=== PATIENT | female | born 1985 ===

== ENCOUNTER → 2017-11-26 12:17 | Outpatient (CLI) | payer OTHER, SELFPAY ==
[2017-11-26 14:43] LABS: TSH w/ Reflex to FT4 1.13 uIU/mL (0.47-4.68)
== END ==
PROVIDERS: Family Provider Family Medicine; PCP Family Medicine; Visit Provider Family Medicine
DX: Z30.430 Encounter for insertion of intrauterine contraceptive device (principal); R53.83 Other fatigue
CPT/HCPCS: 36415; 84443

== ENCOUNTER → 2018-01-21 08:00 | Outpatient (CLI) | payer OTHER, SELFPAY | PROVIDERS: Family Provider Family Medicine; PCP Family Medicine | DX: Z23 Encounter for immunization (principal) | CPT/HCPCS: 90471; 90686 ==

== ENCOUNTER → 2018-02-20 11:24 | Outpatient (CLI) | payer OTHER, SELFPAY ==
--- NOTE | 2018-02-20 11:26 | DI.RAD.S_ITS ---
PROCEDURE: XR HIP W PEL IF DONE LT 2V INDICATIONS: left hip pain TECHNIQUE: AP pelvis with lateral view(s) of the left hip(s). COMPARISON: None. FINDINGS: Bones: No fractures or dislocations. Pelvic ring appears intact. No suspicious bony lesions. Soft tissues: The visualized bowel gas pattern is normal. No suspicious soft tissue calcifications. IUD is noted. Prominent stool is present. IMPRESSION: 1. Prominent stool consistent with constipation. 2. No visualized acute fracture or dislocation. However, if clinical concern and/or pain persist, short interval imaging followup in 7-10 days is recommended, as occult injury cannot be definitively excluded. Dictated by: Lucy Nixon M.D. on 02/20/2018 at 13:43 Approved by: Lucy Nixon M.D. on 02/20/2018 at 13:44
== END ==
PROVIDERS: Family Provider Family Medicine; PCP Family Medicine; Visit Provider Family Medicine
DX: M25.552 Pain in left hip (principal)
CPT/HCPCS: 73502

== ENCOUNTER 2018-03-31 08:15 | Outpatient (RCR) | payer OTHER, SELFPAY ==
--- NOTE | 2018-02-28 11:20 | PT.OPPOC ---
Current Diagnoses Pain in left hip (03/04/18) Provider Visit Care Team Role Provider Type Deep Gatica MD Attending Provider Physician Family Provider Primary Care Provider Specialty: Family Practice Address: [address] [place] [address], [id number] Email: [email or web address] Plan Of Care PT-OP-T Assessment and Plan Start: 02/28/18 19:33 Freq: Status: Active Protocol: Document 02/28/18 11:20 DLM (Rec: 03/04/18 18:25 DLM [id number]) Physical Therapy Assessment Rehab Potential Rehabilitation Potential Good Evaluation Complexity Number of Personal Factors/Comorbidities 1-2 Number of Body Systems Impaired 4 or More Clinical Presentation at Evaluation Evolving Impairments Impairments Activity Tolerance Functional Activities Pain Posture ROM Soft Tissue Mobility Strength Goals Four Impairment Pain that limits her gym work- outs 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 (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) Return to running without increase hip pain LTG Duration 6 weeks Three Impairment Decreased LE strength Short Term Goal (STG) Increase LE strength to 4+/5 STG Duration 4 weeks Penitentiary Goal (LTG) Increase LE strength to 5/5 LTG Duration 6 weeks Two Impairment Difficulty sleeping due to pain, unable to lie on left side Short Term Goal (STG) resolve left sidelying pain STG Duration 4 weeks Penitentiary Goal (LTG) Pain will no longer interfere with her sleep One Impairment pain 5-6/10 left hip and low back Short Term Goal (STG) Decrease her pain to 3/10 STG Duration 3 weeks Penitentiary Goal (LTG) Decrease her pain to 1/10 LTG Duration 6 weeks Assessment Summary Assessment She presents with low back and left hip pain with altered mechanics, muscle weakness and soft tissue tightness. Her baseline activity level is high and she has increased pain when she tries to run. She is a good candidate for out-pt physical therapy to address the above impairments. Physical Therapy Plan Frequency and Duration Frequency of Treatment 2x/Week Duration of Treatment 6 weeks Plan of Care Start Date 02/28/18 Plan of Care End Date 05/11/18 Therapeutic Interventions Therapeutic Interventions Home Exercise Program Joint Mobilizations Manual Therapy Patient/Caregiver Education Self-Care/Home Management Soft Tissue Mobilization Taping Therapeutic Activities Therapeutic Exercises Modalities Cold Pack/Ice Massage Electric Stimulation Hot Packs Ultrasound Next Visit Focus/Plan Next Note Type Treatment Note Next Visit Plan advance exercises as tolerated Plan of Care Dates Plan of Care Start Date 02/28/18 Plan of Care End Date 05/11/18 Please Sign and Return: I have reviewed this Plan of Care and certify that the skilled therapy services above are required to meet the patient?s needs. Physician Signature Date Printed Name and Credentials Clinical Instructor Signature Printed Name and Credentials
--- NOTE | 2018-02-28 11:20 | PT.OIE ---
Current Diagnoses Pain in left hip (03/04/18) Past Surgical History (Last Reviewed 02/19/18 @ 11:02 by Yola Mcknight LPN) Status post delivery (Resolved 05/20/14) Status post delivery (Resolved 01/11/16) Provider Visit Care Team Role Provider Type Deep Gatica MD Attending Provider Physician Family Provider Primary Care Provider Specialty: Family Practice Address: [address] [place] [address], [facility] Email: [email or web address] Physical Therapy Initial Evaluation PT-OP-A Visit Information Start: 02/28/18 19:33 Freq: Status: Active Protocol: Document 02/28/18 11:20 DLM (Rec: 03/04/18 18:25 DLM [id number]) Out-Patient Physical Therapy Visit Information Visit Information Visit Type Initial Evaluation Visit Start Time 11:20 Visit Stop Time 12:10 Total Visit Minutes 50 Visit Number 06/24 Number of INTEGRATION ENGINEER Visits 0 Evaluation Information Evaluation Date 02/28/18 PT-OP-B Current Condition Start: 02/28/18 19:33 Freq: Status: Active Protocol: Document 02/28/18 11:20 DLM (Rec: 03/04/18 18:25 DLM [id number]) Current Condition History of Current Condition Onset Date since last Current Complaints left hip pain and low back pain History of Current Condition She reports developing left hip pain during her . It continues to bother her. She has increased pain after running and can have difficulty walking for a few days. The pain affects her sleep. She has increased pain if she lies on left side. Prior Treatments and Tests Lidocaine patch did not help, topical NSAID cream helps a little. Ibuprofen helps. 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 Baseline Function- Recreation/Hobbies works out a gym, runs Baseline Function- Other visits [place] every month She sleeps on stomach often with left LE up Current Functional Impairments (Reported) Functional Limitations- ADL's Independent Functional Limitations- Mobility/Gait Independent gait without device Functional Limitations- Work/School no limits in ability to work Functional Limitations- Recreation/ unable to run for exercise, Hobbies can do elliptical but it gets boring, she has less pain run/ walking on incline and worse on flat surface, increased pain on long car trip Personal Factors Other Personal Factors That May Effect depression Therapy/Recovery PT-OP-C Subjective Start: 02/28/18 19:33 Freq: Status: Active Protocol: Document 02/28/18 11:20 DLM (Rec: 03/04/18 18:25 DL [id number]) Patient Questionnaires Lower Extremity Functional Scale LEFS Score 30 LEFS Impairment 60 to 79% Impaired (Score 17- 31) OP-PT Pain Assessment Pain Assessment Grid Paper Pain Assessment Grid Completed Yes Location Bilateral Lower Posterior Back Intensity 5 Scale Used Numeric (1 - 10) Description Aching Frequency Intermittent Pain Aggravating Factors Position Activity Pain Alleviating Factors Heat Medication Left Posterior Lateral Hip Intensity 6 Scale Used Numeric (1 - 10) Description Aching Frequency Intermittent Pain Aggravating Factors Position Exercise Other Pain Aggravating Factors riding in car for long periods Pain Alleviating Factors Medication Inactivity Other Pain Alleviating Factors ice does not help Home Pain Medication Use Pain Medications Used Yes: Ibuprofen Home Pain Medication Frequency as needed PT-OP-H Neuro Start: 02/28/18 19:33 Freq: Status: Active Protocol: Document 02/28/18 11:20 DLM (Rec: 03/04/18 18:25 DL [id number]) Sensation Evaluation Gross Sensation Gross Sensation WNL PT-OP-J Posture/Palpation/Skin Start: 02/28/18 19:33 Freq: Status: Active Protocol: Document 02/28/18 11:20 DLM (Rec: 03/04/18 18:25 [facility] [id number]) Posture Evaluation Position Standing Evaluation View Posterior Head/C-Spine Posture Forward Head T-Spine Posture Rotation Left L-Spine Posture Shifted Right Pelvis Posture (R) Rotated Anterior Weight Distribution Weight Shifted Left Knee Posture (L) Genu Varus (R) Genu Varus Palpation Assessment Location Two Palpation Location left gluteal area Palpation Findings Soft Tissue Tightness Palpation Details tender left piriformis One Palpation Location lumbar paraspinals Palpation Findings Soft Tissue Tightness PT-OP-K Range of Motion Start: 02/28/18 19:33 Freq: Status: Active Protocol: Document 02/28/18 11:20 DLM (Rec: 03/04/18 18:25 DL [id number]) Lumbar Spine Range of Motion Lumbar Spine Active Percentage Testing Position standing Flexion 100 Extension 100 Rotation Left 100 Rotation Right 90 Lateral Flexion Left 80 Lateral Flexion Right 100 ROM Limitations Soft Tissue Tightness Comments compensationd during flexion with her body shifts right Hip Goniometric Range of Motion Hip Measured in Degrees Left Active Testing Position all positions used above Straight Leg Raise 78 Internal Rotation 38 Right Active Hip ROM WFL Yes Testing Position all positions used above Straight Leg Raise 72 Internal Rotation 40 Hip ROM Limitations Hip ROM Limitations Soft Tissue Tightness Muscle Weakness Comments other motions WFL PT-OP-L Special Tests Start: 02/28/18 19:33 Freq: Status: Active Protocol: Document 02/28/18 11:20 DLM (Rec: 03/04/18 18:25 DL [id number]) Special Tests Lumbar Spine Special Tests Prone Knee Flexion Test Results negative Prone Press Up Test Results negative Standing Flexion Test Results negative Slump Test Results negative Straight Leg Raise Test Results negative during test, c/o numbness right LE after testing Hip Special Tests Scour Test Test Results negative PT-OP-M Strength Start: 02/28/18 19:33 Freq: Status: Active Protocol: Document 02/28/18 11:20 DLM (Rec: 03/04/18 18:25 [facility] [id number]) Hip Strength Hip Manual Muscle Testing Left Flexion (L2) 4- Good- Extension (S1) 4+ Good+ Adduction 5 Normal External Rotation 4+ Good+ Internal Rotation 4+ Good+ Reason Not Measured Pain Right Flexion (L2) 5 Normal Extension (S1) 5 Normal Abduction 5 Normal Adduction 5 Normal External Rotation 5 Normal Internal Rotation 5 Normal Knee Strength Knee Manual Muscle Testing Left Flexion (S2) 4+ Good+ Extension (L3) 5 Normal Right Flexion (S2) 4 Good Extension (L3) 5 Normal Ankle/Foot Strength Ankle and Foot Manual Muscle Testing Right Dorsiflexion (L4) 5 Normal Plantarflexion (S1) 5 Normal Eversion (S1) 5 Normal Left Dorsiflexion (L4) 5 Normal Plantarflexion (S1) 5 Normal Eversion (S1) 5 Normal PT-OP-Q Treatments Start: 02/28/18 19:33 Freq: Status: Active Protocol: Document 02/28/18 11:20 DLM (Rec: 02/28/18 19:38 DLM [id number]) Therapeutic Exercises Supine Exercises 2 Supine Exercise Name crunches with TVA Reps/Minutes 10 Comments to do instead of sit-ups during home exerices 1 Supine Exercise Name lower trunk rotation without back leaving table Side bilateral Reps/Minutes 5 Comments hooklying Self-Care/Home Management Treatment Education Patient Education Home Exercise Program Pain Management Posture Other Education reviewed her current exercises and began modification to manage her pain, educated her in sleeping positions to manage her pain PT-OP-T Assessment and Plan Start: 02/28/18 19:33 Freq: Status: Active Protocol: Document 02/28/18 11:20 DL (Rec: 03/04/18 18:25 DL [id number]) Physical Therapy Assessment Rehab Potential Rehabilitation Potential Good Evaluation Complexity Number of Personal Factors/Comorbidities 1-2 Number of Body Systems Impaired 4 or More Clinical Presentation at Evaluation Evolving Impairments Impairments Activity Tolerance Functional Activities Pain Posture ROM Soft Tissue Mobility Strength Goals Four Impairment Pain that limits her gym work- outs Alf Goal (LTG) Return to running without increase hip pain LTG Duration 6 weeks Three Impairment Decreased LE strength Short Term Goal (STG) Increase LE strength to 4+/5 STG Duration 4 weeks 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 Her baseline activity level is high and she has increased pain when she tries to run. She is a good candidate for out-pt physical therapy to address the above impairments. Physical Therapy Plan Frequency and Duration Frequency of Treatment 2x/Week Duration of Treatment 6 weeks Plan of Care Start Date 02/28/18 Plan of Care End Date 05/11/18 Therapeutic Interventions Therapeutic Interventions Home Exercise Program Joint Mobilizations Manual Therapy Patient/Caregiver Education Self-Care/Home Management Soft Tissue Mobilization Taping Therapeutic Activities Therapeutic Exercises Modalities Cold Pack/Ice Massage Electric Stimulation Hot Packs Ultrasound Next Visit Focus/Plan Next Note Type Treatment Note Next Visit Plan advance exercises as tolerated
--- NOTE | 2018-03-04 16:50 | PT.OTN ---
Current Diagnoses Pain in left hip (03/04/18) Physical Therapy Treatment Note PT-OP-A Visit Information Start: 02/28/18 19:33 Freq: Status: Active Protocol: Document 03/04/18 16:50 DLM (Rec: 03/04/18 18:41 DLM [id number]) Out-Patient Physical Therapy Visit Information Visit Information Visit Type Treatment Note Visit Start Time 16:50 Visit Stop Time 17:35 Total Visit Minutes 45 Visit Number 2/12 Number of SAFETY ASSOCIATE Visits 0 Evaluation Information Evaluation Date 02/28/18 PT-OP-B Current Condition Start: 02/28/18 19:33 Freq: Status: Active Protocol: Document 02/28/18 11:20 DLM (Rec: 03/04/18 18:25 DLM [id number]) Current Condition History of Current Condition Onset Date since last Current Complaints left hip pain and low back pain History of Current Condition She reports developing left hip pain during her . It continues to bother her. She has increased pain after running and can have difficulty walking for a few days. The pain affects her sleep. She has increased pain if she lies on left side. Prior Treatments and Tests Lidocaine patch did not help, topical NSAID cream helps a little. Ibuprofen helps. 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/Hobbies works out a gym, runs Baseline Function- Other visits [place] every month She sleeps on stomach often with left LE up Current Functional Impairments (Reported) Functional Limitations- ADL's Independent Functional Limitations- Mobility/Gait Independent gait without device Functional Limitations- Work/School no limits in ability to work Functional Limitations- Recreation/ unable to run for exercise, Hobbies can do elliptical but it gets boring, she has less pain run/ walking on incline and worse on flat surface, increased pain on long car trip Personal Factors Other Personal Factors That May Effect depression Therapy/Recovery PT-OP-C Subjective Start: 02/28/18 19:33 Freq: Status: Active Protocol: Document 03/04/18 16:50 DLM (Rec: 03/04/18 18:41 DLM [id number]) OP-PT Subjective Patient Comments Patient Comments started the new exercises without problems Patient Reported Progress Same PT-OP-H Neuro Start: 02/28/18 19:33 Freq: Status: Active Protocol: Document 02/28/18 11:20 DLM (Rec: 03/04/18 18:25 DLM [id number]) Sensation Evaluation Gross Sensation Gross Sensation WNL PT-OP-J Posture/Palpation/Skin Start: 02/28/18 19:33 Freq: Status: Active Protocol: Document 02/28/18 11:20 DLM (Rec: 03/04/18 18:25 DL [id number]) Posture Evaluation Position Standing Evaluation View Posterior Head/C-Spine Posture Forward Head T-Spine Posture Rotation Left L-Spine Posture Shifted Right Pelvis Posture (R) Rotated Anterior Weight Distribution Weight Shifted Left Knee Posture (L) Genu Varus (R) Genu Varus Palpation Assessment Location Two Palpation Location left gluteal area Palpation Findings Soft Tissue Tightness Palpation Details tender left piriformis One Palpation Location lumbar paraspinals Palpation Findings Soft Tissue Tightness PT-OP-K Range of Motion Start: 02/28/18 19:33 Freq: Status: Active Protocol: Document 02/28/18 11:20 DLM (Rec: 03/04/18 18:25 DL [id number]) Lumbar Spine Range of Motion Lumbar Spine Active Percentage Testing Position standing Flexion 100 Extension 100 Rotation Left 100 Rotation Right 90 Lateral Flexion Left 80 Lateral Flexion Right 100 ROM Limitations Soft Tissue Tightness Comments compensationd during flexion with her body shifts right Hip Goniometric Range of Motion Hip Measured in Degrees Left Active Testing Position all positions used above Straight Leg Raise 78 Internal Rotation 38 Right Active Hip ROM WFL Yes Testing Position all positions used above Straight Leg Raise 72 Internal Rotation 40 Hip ROM Limitations Hip ROM Limitations Soft Tissue Tightness Muscle Weakness Comments other motions WFL PT-OP-L Special Tests Start: 02/28/18 19:33 Freq: Status: Active Protocol: Document 02/28/18 11:20 DLM (Rec: 03/04/18 18:25 DLM [id number]) Special Tests Lumbar Spine Special Tests Prone Knee Flexion Test Results negative Prone Press Up Test Results negative Standing Flexion Test Results negative Slump Test Results negative Straight Leg Raise Test Results negative during test, c/o numbness right LE after testing Hip Special Tests Scour Test Test Results negative PT-OP-M Strength Start: 02/28/18 19:33 Freq: Status: Active Protocol: Document 02/28/18 11:20 DLM (Rec: 03/04/18 18:25 DL [id number]) Hip Strength Hip Manual Muscle Testing Left Flexion (L2) 4- Good- Extension (S1) 4+ Good+ Adduction 5 Normal External Rotation 4+ Good+ Internal Rotation 4+ Good+ Reason Not Measured Pain Right Flexion (L2) 5 Normal Extension (S1) 5 Normal Abduction 5 Normal Adduction 5 Normal External Rotation 5 Normal Internal Rotation 5 Normal Knee Strength Knee Manual Muscle Testing Left Flexion (S2) 4+ Good+ Extension (L3) 5 Normal Right Flexion (S2) 4 Good Extension (L3) 5 Normal Ankle/Foot Strength Ankle and Foot Manual Muscle Testing Right Dorsiflexion (L4) 5 Normal Plantarflexion (S1) 5 Normal Eversion (S1) 5 Normal Left Dorsiflexion (L4) 5 Normal Plantarflexion (S1) 5 Normal Eversion (S1) 5 Normal PT-OP-Q Treatments Start: 02/28/18 19:33 Freq: Status: Active Protocol: Document 03/04/18 16:50 DLM (Rec: 03/04/18 18:41 DL [id number]) Therapeutic Exercises Supine Exercises 4 Supine Exercise Name core stabalization with alternating knee lifts Reps/Minutes 10 reps Comments up/up, down/down with hold at 90 degrees with bilateral LE's up 3 Supine Exercise Name single knee to chest stretch Side bilateral Reps/Minutes 3 reps each side Comments cueing to avoid compensations on left 2 Supine Exercise Name crunches with TVA Resistance limited by cervical fatigue Reps/Minutes 10 Comments to do instead of sit-ups during home exerices 1 Supine Exercise Name lower trunk rotation without back leaving table Side bilateral Reps/Minutes 5 Comments hooklying Prone Exercises 1 Prone Exercise Name hip extension with knee straight Side bilateral Reps/Minutes 10 reps each Comments she reports left more difficult than right Sidelying Exercises 3 Sidelying Exercise Name reverse clamshells (IR) Side left Reps/Minutes 10 reps 2 Sidelying Exercise Name Clamshells Side left Reps/Minutes 10 reps 1 Sidelying Exercise Name hip abduction with knee extended Side left Reps/Minutes x 10 reps Comments reps limited by fatigue Manual Therapy Treatment Soft Tissue Mobilization 2 Body Location left gluteal area Mobilization Type Rolling Strumming Sustained Pressure Intensity/Depth Moderate Body Position Prone 1 Body Location lumbar paraspinals Mobilization Type Strumming Sustained Pressure Intensity/Depth Moderate Body Position Prone Manual Techniques 1 Type manually assisted hip rotation stretches Body Location left Body Position Prone Reps/Duration 4 Comments goal to increase hip IR ROM PT-OP-T Assessment and Plan Start: 02/28/18 19:33 Freq: Status: Active Protocol: Document 03/04/18 16:50 DLM (Rec: 03/04/18 18:41 DLM [id number]) Physical Therapy Assessment Progress Towards Goals Progress Towards Goals Progressing Toward Goals Assessment Summary Assessment She appears to tolerate treatment well. Muscle fatigue noted with exercises. Improved soft tissue tightness with treatment. She plans to go on a low car ride to [place]. Physical Therapy Plan Frequency and Duration Frequency of Treatment 2x/Week Duration of Treatment 6 weeks Plan of Care Start Date 02/28/18 Plan of Care End Date 05/11/18 Next Visit Focus/Plan Next Note Type Treatment Note Next Visit Plan trial Estim as needed for pain
--- NOTE | 2018-03-17 13:56 | PT.OTN ---
Current Diagnoses Pain in left hip (03/17/18) Physical Therapy Treatment Note PT-OP-A Visit Information Start: 02/28/18 19:33 Freq: Status: Active Protocol: Document 03/17/18 12:53 LRN (Rec: 03/17/18 13:53 LRN [id number]) Out-Patient Physical Therapy Visit Information Visit Information Visit Type Treatment Note Visit Start Time 12:53 Visit Stop Time 13:30 Total Visit Minutes 37 Visit Number 3/12 Number of CUSTOMER EXPERIENCE PROFESSIONAL Visits 0 Evaluation Information Evaluation Date 02/28/18 PT-OP-B Current Condition Start: 02/28/18 19:33 Freq: Status: Active Protocol: Document 02/28/18 11:20 DLM (Rec: 03/04/18 18:25 DLM [id number]) Current Condition History of Current Condition Onset Date since last Current Complaints left hip pain and low back pain History of Current Condition She reports developing left hip pain during her . It continues to bother her. She has increased pain after running and can have difficulty walking for a few days. The pain affects her sleep. She has increased pain if she lies on left side. Prior Treatments and Tests Lidocaine patch did not help, topical NSAID cream helps a little. Ibuprofen helps. 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 Function- Recreation/Hobbies works out a gym, runs Baseline Function- Other visits [place] every month She sleeps on stomach often with left LE up Current Functional Impairments (Reported) Functional Limitations- ADL's Independent Functional Limitations- Mobility/Gait Independent gait without device Functional Limitations- Work/School no limits in ability to work Functional Limitations- Recreation/ unable to run for exercise, Hobbies can do elliptical but it gets boring, she has less pain run/ walking on incline and worse on flat surface, increased pain on long car trip Personal Factors Other Personal Factors That May Effect depression Therapy/Recovery PT-OP-C Subjective Start: 02/28/18 19:33 Freq: Status: Active Protocol: Document 03/17/18 12:53 LRN (Rec: 03/17/18 13:53 LRN [id number]) OP-PT Subjective Patient Comments Patient Comments Today already worked out. Ran 1 mile (~12 minutes). No LBP , L hip pain ~4/10. OP-PT Pain Assessment Pain Assessment Grid Paper Pain Assessment Grid Completed No Location Bilateral Lower Posterior Back Intensity 0 Scale Used Numeric (1 - 10) Left Posterior Lateral Hip Intensity 4 Scale Used Numeric (1 - 10) Home Pain Medication Use Pain Medications Used Yes: Ibuprofen Home Pain Medication Frequency At night to sleep. PT-OP-H Neuro Start: 02/28/18 19:33 Freq: Status: Active Protocol: Document 02/28/18 11:20 DLM (Rec: 03/04/18 18:25 DLM [id number]) Sensation Evaluation Gross Sensation Gross Sensation WNL PT-OP-J Posture/Palpation/Skin Start: 02/28/18 19:33 Freq: Status: Active Protocol: Document 02/28/18 11:20 DLM (Rec: 03/04/18 18:25 DLM [id number]) Posture Evaluation Position Standing Evaluation View Posterior Head/C-Spine Posture Forward Head T-Spine Posture Rotation Left L-Spine Posture Shifted Right Pelvis Posture (R) Rotated Anterior Weight Distribution Weight Shifted Left Knee Posture (L) Genu Varus (R) Genu Varus Palpation Assessment Location Two Palpation Location left gluteal area Palpation Findings Soft Tissue Tightness Palpation Details tender left piriformis One Palpation Location lumbar paraspinals Palpation Findings Soft Tissue Tightness PT-OP-K Range of Motion Start: 02/28/18 19:33 Freq: Status: Active Protocol: Document 02/28/18 11:20 DLM (Rec: 03/04/18 18:25 DLM [id number]) Lumbar Spine Range of Motion Lumbar Spine Active Percentage Testing Position standing Flexion 100 Extension 100 Rotation Left 100 Rotation Right 90 Lateral Flexion Left 80 Lateral Flexion Right 100 ROM Limitations Soft Tissue Tightness Comments compensationd during flexion with her body shifts right Hip Goniometric Range of Motion Hip Measured in Degrees Left Active Testing Position all positions used above Straight Leg Raise 78 Internal Rotation 38 Right Active Hip ROM WFL Yes Testing Position all positions used above Straight Leg Raise 72 Internal Rotation 40 Hip ROM Limitations Hip ROM Limitations Soft Tissue Tightness Muscle Weakness Comments other motions WFL PT-OP-L Special Tests Start: 02/28/18 19:33 Freq: Status: Active Protocol: Document 02/28/18 11:20 DLM (Rec: 03/04/18 18:25 DL [id number]) Special Tests Lumbar Spine Special Tests Prone Knee Flexion Test Results negative Prone Press Up Test Results negative Standing Flexion Test Results negative Slump Test Results negative Straight Leg Raise Test Results negative during test, c/o numbness right LE after testing Hip Special Tests Scour Test Test Results negative PT-OP-M Strength Start: 02/28/18 19:33 Freq: Status: Active Protocol: Document 02/28/18 11:20 DLM (Rec: 03/04/18 18:25 DL [id number]) Hip Strength Hip Manual Muscle Testing Left Flexion (L2) 4- Good- Extension (S1) 4+ Good+ Adduction 5 Normal External Rotation 4+ Good+ Internal Rotation 4+ Good+ Reason Not Measured Pain Right Flexion (L2) 5 Normal Extension (S1) 5 Normal Abduction 5 Normal Adduction 5 Normal External Rotation 5 Normal Internal Rotation 5 Normal Knee Strength Knee Manual Muscle Testing Left Flexion (S2) 4+ Good+ Extension (L3) 5 Normal Right Flexion (S2) 4 Good Extension (L3) 5 Normal Ankle/Foot Strength Ankle and Foot Manual Muscle Testing Right Dorsiflexion (L4) 5 Normal Plantarflexion (S1) 5 Normal Eversion (S1) 5 Normal Left Dorsiflexion (L4) 5 Normal Plantarflexion (S1) 5 Normal Eversion (S1) 5 Normal PT-OP-Q Treatments Start: 02/28/18 19:33 Freq: Status: Active Protocol: Document 03/17/18 12:53 LRN (Rec: 03/17/18 13:53 LRN [id number]) Cardio Equipment Bicycle (Upright) Duration (Minutes) 5 Resistance 3 Seat Position 5 Other Positioning equally on Ischial Tub's & core stab to start Therapeutic Exercises Supine Exercises Hip flexor stretch Side bilateral Reps/Minutes 4 Comments TA contraction to start Hamstring/LE neural stretch Side bilateral Reps/Minutes 4 Comments Set lordosis to start Lateral Hip stretch Side left Reps/Minutes 2 Comments Set lordosis to start Piriformis Stretch Supine Exercise Name Ankle over knee & Knee to opposite shoulder Side left Reps/Minutes 5 Comments Set lordosis to start Sidelying Exercises Transverse Abdominus Isometric Reps/Minutes 10x Comments R sidelie only due to pt time constraint Standing Exercises Squat walk Standing Exercise Name Glut Med strengthening Side bilateral Comments Reset of proper Posturing Self-Care/Home Management Treatment Education Patient Education Home Exercise Program Other Education Issued and reviewed HEP: Piriformis, Lateral hip, Iliopsoas, and Hamstring/LE neural stretch PT-OP-T Assessment and Plan Start: 02/28/18 19:33 Freq: Status: Active Protocol: Document 03/17/18 12:53 LRN (Rec: 03/17/18 13:53 LRN [id number]) Physical Therapy Assessment Progress Towards Goals Progress Towards Goals Progressing Toward Goals Assessment Summary Assessment Pt had appointment to attend immediately after therapy session; therefore pt unable to stay for cryotherapy at end of treatment. Pt L Piriformis and Gluteals have increased muscle tone; therefore Sacrum is R rotated. She has poor core/pelvic stabilization with excessive lumbar lordosis and anterior pelvic rotation contributing to her LBP and L hip pain. Soft tissue tightness/pain on left causing R rotation of Sacrum. Pt needs further stabilization. Physical Therapy Plan Frequency and Duration Frequency of Treatment 2x/Week Duration of Treatment 6 weeks Plan of Care Start Date 02/28/18 Plan of Care End Date 05/11/18 Next Visit Focus/Plan Next Note Type Treatment Note Next Visit Plan Trial Estim as needed for pain . Address positioning and ex' s pt can do on trip to [place].. Progress towards symmetry of hip mobility, stabilization of pelvis and core;
--- NOTE | 2018-03-20 09:24 | PT.OTN ---
Current Diagnoses Pain in left hip (03/20/18) Physical Therapy Treatment Note PT-OP-A Visit Information Start: 02/28/18 19:33 Freq: Status: Active Protocol: Document 03/20/18 08:17 LRN (Rec: 03/20/18 09:24 LRN [id number]) Out-Patient Physical Therapy Visit Information Visit Information Visit Type Treatment Note Visit Start Time 08:16 Visit Stop Time 08:56 Total Visit Minutes 40 Visit Number 4/12 Number of TRIGONOMETRY TEACHER Visits 0 Evaluation Information Evaluation Date 02/28/18 PT-OP-B Current Condition Start: 02/28/18 19:33 Freq: Status: Active Protocol: Document 02/28/18 11:20 DLM (Rec: 03/04/18 18:25 DLM [id number]) Current Condition History of Current Condition Onset Date since last Current Complaints left hip pain and low back pain History of Current Condition She reports developing left hip pain during her . It continues to bother her. She has increased pain after running and can have difficulty walking for a few days. The pain affects her sleep. She has increased pain if she lies on left side. Prior Treatments and Tests Lidocaine patch did not help, topical NSAID cream helps a little. Ibuprofen helps. 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/Hobbies works out a gym, runs Baseline Function- Other visits [place] every month She sleeps on stomach often with left LE up Current Functional Impairments (Reported) Functional Limitations- ADL's Independent Functional Limitations- Mobility/Gait Independent gait without device Functional Limitations- Work/School no limits in ability to work Functional Limitations- Recreation/ unable to run for exercise, Hobbies can do elliptical but it gets boring, she has less pain run/ walking on incline and worse on flat surface, increased pain on long car trip Personal Factors Other Personal Factors That May Effect depression Therapy/Recovery PT-OP-C Subjective Start: 02/28/18 19:33 Freq: Status: Active Protocol: Document 03/20/18 08:17 LRN (Rec: 03/20/18 09:24 LRN [id number]) OP-PT Subjective Patient Comments Patient Comments States she is doing slower workouts. No pain today in LB /L hips or knees. States after running ~1 mile her knee cap feels like it is locked and feels better once it clicks out. Patient Reported Progress Same PT-OP-H Neuro Start: 02/28/18 19:33 Freq: Status: Active Protocol: Document 02/28/18 11:20 DLM (Rec: 03/04/18 18:25 DLM [id number]) Sensation Evaluation Gross Sensation Gross Sensation WNL PT-OP-J Posture/Palpation/Skin Start: 02/28/18 19:33 Freq: Status: Active Protocol: Document 02/28/18 11:20 DLM (Rec: 03/04/18 18:25 DLM [id number]) Posture Evaluation Position Standing Evaluation View Posterior Head/C-Spine Posture Forward Head T-Spine Posture Rotation Left L-Spine Posture Shifted Right Pelvis Posture (R) Rotated Anterior Weight Distribution Weight Shifted Left Knee Posture (L) Genu Varus (R) Genu Varus Palpation Assessment Location Two Palpation Location left gluteal area Palpation Findings Soft Tissue Tightness Palpation Details tender left piriformis One Palpation Location lumbar paraspinals Palpation Findings Soft Tissue Tightness PT-OP-K Range of Motion Start: 02/28/18 19:33 Freq: Status: Active Protocol: Document 02/28/18 11:20 DLM (Rec: 03/04/18 18:25 DLM [id number]) Lumbar Spine Range of Motion Lumbar Spine Active Percentage Testing Position standing Flexion 100 Extension 100 Rotation Left 100 Rotation Right 90 Lateral Flexion Left 80 Lateral Flexion Right 100 ROM Limitations Soft Tissue Tightness Comments compensationd during flexion with her body shifts right Hip Goniometric Range of Motion Hip Measured in Degrees Left Active Testing Position all positions used above Straight Leg Raise 78 Internal Rotation 38 Right Active Hip ROM WFL Yes Testing Position all positions used above Straight Leg Raise 72 Internal Rotation 40 Hip ROM Limitations Hip ROM Limitations Soft Tissue Tightness Muscle Weakness Comments other motions WFL PT-OP-L Special Tests Start: 02/28/18 19:33 Freq: Status: Active Protocol: Document 02/28/18 11:20 DLM (Rec: 03/04/18 18:25 DLM [id number]) Special Tests Lumbar Spine Special Tests Prone Knee Flexion Test Results negative Prone Press Up Test Results negative Standing Flexion Test Results negative Slump Test Results negative Straight Leg Raise Test Results negative during test, c/o numbness right LE after testing Hip Special Tests Scour Test Test Results negative PT-OP-M Strength Start: 02/28/18 19:33 Freq: Status: Active Protocol: Document 02/28/18 11:20 DLM (Rec: 03/04/18 18:25 DLM [id number]) Hip Strength Hip Manual Muscle Testing Left Flexion (L2) 4- Good- Extension (S1) 4+ Good+ Adduction 5 Normal External Rotation 4+ Good+ Internal Rotation 4+ Good+ Reason Not Measured Pain Right Flexion (L2) 5 Normal Extension (S1) 5 Normal Abduction 5 Normal Adduction 5 Normal External Rotation 5 Normal Internal Rotation 5 Normal Knee Strength Knee Manual Muscle Testing Left Flexion (S2) 4+ Good+ Extension (L3) 5 Normal Right Flexion (S2) 4 Good Extension (L3) 5 Normal Ankle/Foot Strength Ankle and Foot Manual Muscle Testing Right Dorsiflexion (L4) 5 Normal Plantarflexion (S1) 5 Normal Eversion (S1) 5 Normal Left Dorsiflexion (L4) 5 Normal Plantarflexion (S1) 5 Normal Eversion (S1) 5 Normal PT-OP-Q Treatments Start: 02/28/18 19:33 Freq: Status: Active Protocol: Document 03/20/18 08:17 LRN (Rec: 03/20/18 09:24 LRN [id number]) Cardio Equipment Elliptical Duration (Minutes) 5 Resistance 4 Therapeutic Exercises Supine Exercises Hamstring/LE neural stretch Side bilateral Reps/Minutes 4 Comments Set lordosis to start Piriformis Stretch Supine Exercise Name Ankle over knee & Knee to opposite shoulder Side bilateral Reps/Minutes 4 Comments Set lordosis to start Manual Therapy Treatment Soft Tissue Mobilization 2 Body Location Bilateral Gluteal/Sacral region Mobilization Type Myofascial Release Intensity/Depth Superficial Body Position Prone Comments Rotate trunk fascia left 1 Body Location Thoracic & Lumbar area Mobilization Type Myofascial Release Intensity/Depth Superficial Body Position Prone & Supine Comments Rotate trunk left Taping L knee medial patellar tracking Body Location L knee Treatment Focus Proper patellar tracking Type of Tape Kinesio Tape Skin Inspection Good Comments Pt instructed in safe and proper wear of K-tape. Self-Care/Home Management Treatment Education Patient Education Home Exercise Program Other Education I/S pt to do Clamshell ex only on the R for this week. PT-OP-T Assessment and Plan Start: 02/28/18 19:33 Freq: Status: Active Protocol: Document 03/20/18 08:17 LRN (Rec: 03/20/18 09:24 LRN [id number]) Physical Therapy Assessment Assessment Summary Assessment Pt L Piriformis is more symmetrical in tone to the R side. I was able to derotate the trunk fascia except at ~ T11-L3 and mid thoracic region ; therefore umbilicus is still shifted R. Lumbar spine positioning is good and Sacrum is mildly rotated right. Pt L patella tracks laterally; therefore K-tape may be helpful to prevent L knee locking feeling. Physical Therapy Plan Next Visit Focus/Plan Next Visit Plan Assess Trunk fascia, L hip ms tone, and response to K-tape on pt's exercise running program. Discuss posturing in car and progress stabilization of pelvis and core. Estim if needed to mobilize sacrum.
--- NOTE | 2018-03-31 10:24 | PT.OTN ---
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 It continues to bother her. She has increased pain after running and can have difficulty walking for a few days. The pain affects her sleep. She has increased pain if she lies on left side. Prior Treatments and Tests Lidocaine patch did not help, topical NSAID cream helps a little. Ibuprofen helps. Treatment Goals Patient/Caregiver Goals Be able to run and exercise without pain, decrease her pain so she can sleep better Prior Functional Status Baseline Function- ADL's Independent Baseline Function- Mobility Independent Baseline Function- Gait Independent, very active in community Baseline Function- Work/School [employer] Baseline Function- Recreation/Hobbies works out a gym, runs Baseline Function- Other visits [place] every month She sleeps on stomach often with left LE up Current Functional Impairments (Reported) Functional Limitations- ADL's Independent Functional Limitations- Mobility/Gait Independent gait without device Functional Limitations- Work/School no limits in ability to work Functional Limitations- Recreation/ unable to run for exercise, Hobbies can do elliptical but it gets boring, she has less pain run/ walking on incline and worse on flat surface, increased pain on long car trip Personal Factors Other Personal Factors That May Effect depression Therapy/Recovery PT-OP-C Subjective Start: 02/28/18 19:33 Freq: Status: Active Protocol: Document 03/31/18 08:16 LRN (Rec: 03/31/18 09:04 LRN [id number]) OP-PT Subjective Patient Comments Patient Comments States she slept weird because she had her daughter and pets in bed with her. Her back is bothering her this morning because of the way she slept. Back did not bother her over the weekend, but she didn't work out either. States the K -tape didn't bother her skin after the 4 days. She had general discomfort in the knee with the tape, couldn't tell if it helped with the locking because the knee didn't loclk. The L hip hasn't been painful. OP-PT Pain Assessment Pain Assessment Grid Paper Pain Assessment Grid Completed No Location Left Posterior Lateral Hip Intensity 0 Home Pain Medication Use Home Pain Medication Frequency Last time was 5 days ago PT-OP-H Neuro Start: 02/28/18 19:33 Freq: Status: Active Protocol: Document 02/28/18 11:20 DLM (Rec: 03/04/18 18:25 DLM [id number]) Sensation Evaluation Gross Sensation Gross Sensation WNL PT-OP-J Posture/Palpation/Skin Start: 02/28/18 19:33 Freq: Status: Active Protocol: Document 02/28/18 11:20 DLM (Rec: 03/04/18 18:25 DLM [id number]) Posture Evaluation Position Standing Evaluation View Posterior Head/C-Spine Posture Forward Head T-Spine Posture Rotation Left L-Spine Posture Shifted Right Pelvis Posture (R) Rotated Anterior Weight Distribution Weight Shifted Left Knee Posture (L) Genu Varus (R) Genu Varus Palpation Assessment Location Two Palpation Location left gluteal area Palpation Findings Soft Tissue Tightness Palpation Details tender left piriformis One Palpation Location lumbar paraspinals Palpation Findings Soft Tissue Tightness PT-OP-K Range of Motion Start: 02/28/18 19:33 Freq: Status: Active Protocol: Document 02/28/18 11:20 DLM (Rec: 03/04/18 18:25 DLM [id number]) Lumbar Spine Range of Motion Lumbar Spine Active Percentage Testing Position standing Flexion 100 Extension 100 Rotation Left 100 Rotation Right 90 Lateral Flexion Left 80 Lateral Flexion Right 100 ROM Limitations Soft Tissue Tightness Comments compensationd during flexion with her body shifts right Hip Goniometric Range of Motion Hip Measured in Degrees Left Active Testing Position all positions used above Straight Leg Raise 78 Internal Rotation 38 Right Active Hip ROM WFL Yes Testing Position all positions used above Straight Leg Raise 72 Internal Rotation 40 Hip ROM Limitations Hip ROM Limitations Soft Tissue Tightness Muscle Weakness Comments other motions WFL PT-OP-L Special Tests Start: 02/28/18 19:33 Freq: Status: Active Protocol: Document 02/28/18 11:20 DLM (Rec: 03/04/18 18:25 DL [id number]) Special Tests Lumbar Spine Special Tests Prone Knee Flexion Test Results negative Prone Press Up Test Results negative Standing Flexion Test Results negative Slump Test Results negative Straight Leg Raise Test Results negative during test, c/o numbness right LE after testing Hip Special Tests Scour Test Test Results negative PT-OP-M Strength Start: 02/28/18 19:33 Freq: Status: Active Protocol: Document 02/28/18 11:20 DLM (Rec: 03/04/18 18:25 DL [id number]) Hip Strength Hip Manual Muscle Testing Left Flexion (L2) 4- Good- Extension (S1) 4+ Good+ Adduction 5 Normal External Rotation 4+ Good+ Internal Rotation 4+ Good+ Reason Not Measured Pain Right Flexion (L2) 5 Normal Extension (S1) 5 Normal Abduction 5 Normal Adduction 5 Normal External Rotation 5 Normal Internal Rotation 5 Normal Knee Strength Knee Manual Muscle Testing Left Flexion (S2) 4+ Good+ Extension (L3) 5 Normal Right Flexion (S2) 4 Good Extension (L3) 5 Normal Ankle/Foot Strength Ankle and Foot Manual Muscle Testing Right Dorsiflexion (L4) 5 Normal Plantarflexion (S1) 5 Normal Eversion (S1) 5 Normal Left Dorsiflexion (L4) 5 Normal Plantarflexion (S1) 5 Normal Eversion (S1) 5 Normal PT-OP-Q Treatments Start: 02/28/18 19:33 Freq: Status: Active Protocol: Document 03/31/18 08:16 LRN (Rec: 03/31/18 09:04 LRN [id number]) Cardio Equipment Elliptical Duration (Minutes) 7 Resistance 4 Therapeutic Exercises Supine Exercises Hamstring/LE neural stretch Side bilateral Reps/Minutes 4 Comments Set lordosis to start Piriformis Stretch Supine Exercise Name Ankle over knee & Knee to opposite shoulder Side bilateral Reps/Minutes 4 Comments Set lordosis to start 4 Supine Exercise Name DLS: Heel slides Sidelying Exercises 3 Sidelying Exercise Name reverse clamshells (IR) Side left Reps/Minutes 15x2 reps 2 Sidelying Exercise Name Clamshells Side left Reps/Minutes 13 reps 1 Sidelying Exercise Name hip abduction with knee extended Side left Reps/Minutes x 10 reps Comments reps limited by fatigue Other Exercises Hands/Knees Other Exercise Name Knee to chest Side bilateral Reps/Minutes 5x , DC'd due to wrist discomfort Comments Pt not able to maintain stability with R KTC Manual Therapy Treatment Soft Tissue Mobilization 1 Body Location R Thoracic & Lumbar area Mobilization Type Myofascial Release Strumming Intensity/Depth Moderate Body Position Prone & Supine Comments Rotate trunk left and decrease R paraspinal tone. Joint Mobilizations Pelvic Joint L & R innominate Direction Correction of Outflare & Inflare, respectively Body Position Supine Taping L knee medial patellar tracking Body Location L knee Treatment Focus Proper patellar tracking Type of Tape Kinesio Tape Skin Inspection Good Comments Pt instructed in safe and proper wear of K-tape. Self-Care/Home Management Treatment Education Other Education 7' to educate pt in self K- taping for the knee. PT-OP-T Assessment and Plan Start: 02/28/18 19:33 Freq: Status: Active Protocol: Document 03/31/18 08:16 LRN (Rec: 03/31/18 09:04 LRN [id number]) Physical Therapy Assessment Assessment Summary Assessment Pt hip muscle tone is symmetrical, her LB was tighter on the L to start, but normalized by end of therapy. She is quite weak in the core and lacks hip IR mobility . Will need to check pelvic positioning for a L innominate outflare vs fascial trunk rotation. Physical Therapy Plan Frequency and Duration Frequency of Treatment 2x/Week Duration of Treatment 6 weeks Plan of Care Start Date 02/28/18 Plan of Care End Date 05/11/18 Next Visit Focus/Plan Next Note Type Treatment Note Next Visit Plan Recheck L innominate outflare vs trunk fascia rotation, monitor K-tape response on pt' s running. Training for posturing in car (?Pad on L side)
--- NOTE | 2018-06-23 10:19 | PT.OPDS ---
Current Diagnoses Pain in left hip (03/31/18) Provider Visit Care Team Role Provider Type Deep Gatica MD Attending Provider Physician Family Provider Primary Care Provider Specialty: Family Practice Address: [address] [place] [address], [facility] Email: [email or web address] Visit Number Visit Number 09/21 Discharge Summary PT-OP-B Current Condition Start: 02/28/18 19:33 Freq: Status: Active Protocol: Document 02/28/18 11:20 DLM (Rec: 03/04/18 18:25 DLM [id number]) Current Condition History of Current Condition Onset Date since last Current Complaints left hip pain and low back pain History of Current Condition She reports developing left hip pain during her . It continues to bother her. She has increased pain after running and can have difficulty walking for a few days. The pain affects her sleep. She has increased pain if she lies on left side. Prior Treatments and Tests Lidocaine patch did not help, topical NSAID cream helps a little. Ibuprofen helps. 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 Baseline Function- Recreation/Hobbies works out a gym, runs Baseline Function- Other visits [place] every month She sleeps on stomach often with left LE up Current Functional Impairments (Reported) Functional Limitations- ADL's Independent Functional Limitations- Mobility/Gait Independent gait without device Functional Limitations- Work/School no limits in ability to work Functional Limitations- Recreation/ unable to run for exercise, Hobbies can do elliptical but it gets boring, she has less pain run/ walking on incline and worse on flat surface, increased pain on long car trip Personal Factors Other Personal Factors That May Effect depression Therapy/Recovery PT-OP-C Subjective Start: 02/28/18 19:33 Freq: Status: Active Protocol: Document 03/31/18 08:16 LRN (Rec: 03/31/18 09:04 LRN [id number]) OP-PT Subjective Patient Comments Patient Comments States she slept weird because she had her daughter and pets in bed with her. Her back is bothering her this morning because of the way she slept. Back did not bother her over the weekend, but she didn't work out either. States the K -tape didn't bother her skin after the 4 days. She had general discomfort in the knee with the tape, couldn't tell if it helped with the locking because the knee didn't loclk. The L hip hasn't been painful. OP-PT Pain Assessment Pain Assessment Grid Paper Pain Assessment Grid Completed No Location Left Posterior Lateral Hip Intensity 0 Home Pain Medication Use Home Pain Medication Frequency Last time was 5 days ago PT-OP-H Neuro Start: 02/28/18 19:33 Freq: Status: Active Protocol: Document 02/28/18 11:20 DLM (Rec: 03/04/18 18:25 DLM [id number]) Sensation Evaluation Gross Sensation Gross Sensation WNL PT-OP-J Posture/Palpation/Skin Start: 02/28/18 19:33 Freq: Status: Active Protocol: Document 02/28/18 11:20 DLM (Rec: 03/04/18 18:25 DLM [id number]) Posture Evaluation Position Standing Evaluation View Posterior Head/C-Spine Posture Forward Head T-Spine Posture Rotation Left L-Spine Posture Shifted Right Pelvis Posture (R) Rotated Anterior Weight Distribution Weight Shifted Left Knee Posture (L) Genu Varus (R) Genu Varus Palpation Assessment Location Two Palpation Location left gluteal area Palpation Findings Soft Tissue Tightness Palpation Details tender left piriformis One Palpation Location lumbar paraspinals Palpation Findings Soft Tissue Tightness PT-OP-K Range of Motion Start: 02/28/18 19:33 Freq: Status: Active Protocol: Document 02/28/18 11:20 DLM (Rec: 03/04/18 18:25 DLM [id number]) Lumbar Spine Range of Motion Lumbar Spine Active Percentage Testing Position standing Flexion 100 Extension 100 Rotation Left 100 Rotation Right 90 Lateral Flexion Left 80 Lateral Flexion Right 100 ROM Limitations Soft Tissue Tightness Comments compensationd during flexion with her body shifts right Hip Goniometric Range of Motion Hip Measured in Degrees Left Active Testing Position all positions used above Straight Leg Raise 78 Internal Rotation 38 Right Active Hip ROM WFL Yes Testing Position all positions used above Straight Leg Raise 72 Internal Rotation 40 Hip ROM Limitations Hip ROM Limitations Soft Tissue Tightness Muscle Weakness Comments other motions WFL PT-OP-L Special Tests Start: 02/28/18 19:33 Freq: Status: Active Protocol: Document 02/28/18 11:20 DLM (Rec: 03/04/18 18:25 DLM [id number]) Special Tests Lumbar Spine Special Tests Prone Knee Flexion Test Results negative Prone Press Up Test Results negative Standing Flexion Test Results negative Slump Test Results negative Straight Leg Raise Test Results negative during test, c/o numbness right LE after testing Hip Special Tests Scour Test Test Results negative PT-OP-M Strength Start: 02/28/18 19:33 Freq: Status: Active Protocol: Document 02/28/18 11:20 DLM (Rec: 03/04/18 18:25 DL [id number]) Hip Strength Hip Manual Muscle Testing Left Flexion (L2) 4- Good- Extension (S1) 4+ Good+ Adduction 5 Normal External Rotation 4+ Good+ Internal Rotation 4+ Good+ Reason Not Measured Pain Right Flexion (L2) 5 Normal Extension (S1) 5 Normal Abduction 5 Normal Adduction 5 Normal External Rotation 5 Normal Internal Rotation 5 Normal Knee Strength Knee Manual Muscle Testing Left Flexion (S2) 4+ Good+ Extension (L3) 5 Normal Right Flexion (S2) 4 Good Extension (L3) 5 Normal Ankle/Foot Strength Ankle and Foot Manual Muscle Testing Right Dorsiflexion (L4) 5 Normal Plantarflexion (S1) 5 Normal Eversion (S1) 5 Normal Left Dorsiflexion (L4) 5 Normal Plantarflexion (S1) 5 Normal Eversion (S1) 5 Normal PT-OP-T Assessment and Plan Start: 02/28/18 19:33 Freq: Status: Active Protocol: Document 06/23/18 10:10 LRN (Rec: 06/23/18 10:19 LRN [id number]) Physical Therapy Assessment Goals Four Impairment Pain that limits her gym work- outs 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) Return to running without increase hip pain LTG Duration 6 weeks (Pt unavailable for final assessment) Three Impairment Decreased LE strength Short Term Goal (STG) Increase LE strength to 4+/5 STG Duration 4 weeks Half-Way Goal (LTG) Increase LE strength to 5/5 LTG Duration 6 weeks (Pt unavailable for final assessment) Two Impairment Difficulty sleeping due to pain, unable to lie on left side Short Term Goal (STG) resolve left sidelying pain STG Duration 4 weeks (Pt unavailable for final assessment) Half-Way Goal (LTG) Pain will no longer interfere with her sleep LTG Duration (Pt unavailable for final assessment) One Impairment pain 5-6/10 left hip and low back Short Term Goal (STG) Decrease her pain to 3/10 STG Duration 3 weeks Half-Way Goal (LTG) Decrease her pain to 1/10 LTG Duration 6 weeks (Pt unavailable for final assessment) Assessment Summary Assessment Pt is being discharged from therapy due to lack of attendance. The pt attended 4 treatment sessions and was last seen 03/30/2018. On the last attended visit the pt's hip muscle tone was symmetrical and her LB muscle tone normalized by end of therapy. She was quite weak in the core and lacked hip IR mobility. The pt demonstrated a possible L innominate outflare and/or fascial trunk rotation. The pt would have benefitted from continuation of therapy. Physical Therapy Plan Discharge Physical Therapy Discharge Reasons No Longer Attending PT Discharge Comments Thank you for your referral.
== END 2018-07-29 11:22 ==
LOC: PHYS 08:15
PROVIDERS: Family Provider Family Medicine; PCP Family Medicine; Visit Provider Family Medicine
DX: M25.552 Pain in left hip (principal)
CPT/HCPCS: 97110; 97140; 97162